=== PATIENT | female | born 1995 | race Hispanic/Latino ===

== ENCOUNTER 2018-10-14 13:07 | Emergency (ER) | payer OTHER ==
[~2018-10-14 13:07] MED LIST: GLYB5TAB8 PO
[2018-10-14] MEDS ORDERED: KETOROLAC TROMETHAMINE 30MG/ML ONE (14:16)
[2018-10-14 14:31] LABS: BASOPHILS % (AUTO) 0.4 % (0.0-5.0); EOSINOPHILS % (AUTO) 0.6 % (0.0-8.0); HEMATOCRIT 30.8 % (36-48); LYMPHOCYTES % (AUTO) 12.1 % (21.0-51.0); MEAN CORPUSCULAR HEMOGLOBIN 21.5 pg (27.0-33.0); MEAN CORPUSCULAR VOLUME 69.4 fL (79-99); MONOCYTES % (AUTO) 5.4 % (3.0-13.0); NEUTROPHILS % (AUTO) 81.5 % (40.0-77.0); PLATELET COUNT (AUTO) 351 K/uL (130-400); RED BLOOD CELL COUNT(AUTO) 4.44 MIL/uL (4.00-5.50); RED CELL DISTRIBUTION WIDTH 17.6 % (11.0-15.5)
[2018-10-14] MEDS ORDERED: ACETAMINOPHEN EXTRA STRENGTH 500 MG TABLET ONE (14:32)
[2018-10-14 14:40] LABS: POTASSIUM 3.5 mmol/L (3.5-5.1)
[2018-10-14 14:44] LABS: INR 0.96 (0.85-1.15); PARTIAL THROMBOPLASTIN TIME 29.2 SEC (26.3-35.5); PROTHROMBIN TIME 10.1 SEC (9.6-11.6)
[2018-10-14 14:48] LABS: APPEARANCE,URINE CLOUDY (CLEAR); BILIRUBIN,URINE NEGATIVE (NEGATIVE); GLUCOSE, URINE (UA) 250 mg/dL (NEGATIVE); KETONES,URINE 5 mg/dL (NEGATIVE); LEUKOCYTE ESTERASE ,URINE NEGATIVE (NEGATIVE); NITRATE,URINE NEGATIVE (NEGATIVE); OCCULT BLOOD,URINE LARGE (NEGATIVE); PROTEIN,URINE 30 mg/dL (NEGATIVE)
[2018-10-14 14:49] LABS: COLOR,URINE Dark Yellow (YELLOW)
[2018-10-14 14:51] LABS: BACTERIA,URINE Few /HPF (None Seen); RBC,URINE >100 /HPF (0-1); SQUAMOUS EPITHELIAL CELL,UR 0-2 /HPF (0-2); WBC,URINE 0-1 /HPF (0-1)
[2018-10-14 15:01] LABS: ALBUMIN 3.3 g/dL (3.5-5.0); BILIRUBIN,TOTAL 0.2 mg/dL (0.2-1.0); CREATININE 0.8 mg/dL (0.5-1.5); TOTAL PROTEIN, SERUM 7.8 g/dL (6.0-8.3)
[2018-10-14] MEDS ORDERED: IOHEXOL-350 75 ML VIAL IV ONE (15:35)
[2018-10-14] MEDS ORDERED: CEFTRIAXONE SODIUM 1 GM ONE (18:54)
== END 2018-10-14 19:39 | disposition home or self-care (01) ==
LOC: EDH 13:07
DX: N10 Acute pyelonephritis (principal)
CPT/HCPCS: 36415; 74177; 80053; 81001; 81025; 83605 ×2; 83690; 85025; 85610; 85730; 87040 ×2; 87804 ×2; 96374; 96375; 99285; J0696; J1885; Q9967

== ENCOUNTER 2020-11-25 11:38 | Emergency (ER) | payer OTHER ==
[~2020-11-25] VITALS: Ht 165.1 cm; Wt 136.1 kg
[2020-11-25 11:44] VITALS: BP 177/102
[2020-11-25] MEDS ORDERED: TETANUS/DIPHTHERIA TOXOID [ADULT] 0.5 ML VIAL IM ONE ×2 (12:15→12:21)
[2020-11-25] MEDS: LIDOCAINE 1%-EPI 1:100,000 20 ML VIAL IJ SCH ×2 (12:15→12:30)
[2020-11-25] MEDS ORDERED: ACETAMINOPHEN 500 MG TABLET PO ONE (12:15)
[2020-11-25] MEDS ORDERED: ACETAMINOPHEN 500 MG TABLET ONE (12:20)
[2020-11-25] MEDS ORDERED: LIDOCAINE HCL 1% 20 ML VIAL ONE (12:20)
== END 2020-11-25 13:18 | disposition home or self-care (01) ==
LOC: EDH 11:38
DX: S01.111A Laceration without foreign body of right eyelid and periocular area, initial encounter (principal); I10 Essential (primary) hypertension; E66.9 Obesity, unspecified; Z79.899 Other long term (current) drug therapy; X58.XXXA Exposure to other specified factors, initial encounter; Y93.89 Activity, other specified; Y92.89 Other specified places as the place of occurrence of the external cause; Y99.8 Other external cause status
CPT/HCPCS: 12011; 90471; 90714

== ENCOUNTER 2020-11-30 08:25 | Emergency (ER) | payer OTHER ==
[~2020-11-30] VITALS: Ht 165.1 cm; Wt 154.2 kg
[2020-11-30 08:26] VITALS: BP 207/111
[2020-11-30] MEDS ORDERED: OCTYL 2-CYANOACRYLATE 1 EACH TP ONE (10:09)
== END 2020-11-30 10:28 | disposition home or self-care (01) ==
LOC: EDH 08:25
DX: S01.111A Laceration without foreign body of right eyelid and periocular area, initial encounter (principal); I10 Essential (primary) hypertension; E11.9 Type 2 diabetes mellitus without complications; X58.XXXA Exposure to other specified factors, initial encounter; Y93.89 Activity, other specified; Y92.89 Other specified places as the place of occurrence of the external cause; Y99.8 Other external cause status
CPT/HCPCS: 12011; 99281; 99282